=== PATIENT | male | born 1980 | race Caucasian/White ===

== ENCOUNTER 2018-12-08 16:59 | Emergency (ER) | payer OTHER, SELFPAY ==
[2018-12-08 17:06] VITALS: BP 138/84; PULSE 83; RESP 16; TEMP 36.7; O2SAT 100
--- NOTE | 2018-12-08 17:37 | W.ED.GENAD ---
Discharge Plan Disposition Patient Disposition: HOME Condition: Improving Discharge Details Chief Complaint: DrugWithdr Clinical Impression: Opiate dependence ED Provider: Steven Hoffmann Home Meds and New Rx's Prescriptions: Continued clonazepam [Klonopin] 1 mg Tablet 1 mg PO BID RF: 0 venlafaxine [Effexor XR] 150 mg Capsule,Extended Release 24hr 150 mg PO DAILY RF: 0 buprenorphine-naloxone [Suboxone] 12-3 mg Film 1 film BUCCAL Q24H RF: 0 Discharge Instructions Additional Instructions: Please continue your regular medications. Alejandra and from the coach mechanic team will contact you tomorrow as you discussed with her. Home to rest this evening. Return for any acute concerns in the interim. Medical Decision Making 38-year-old male presents from [place] where he is been seen for the past 2 days. He is staying with a friend. He is been living in [place] and recently had a relapse of opiate and cocaine abuse. He was placed on Suboxone 12 mg buprenorphine/3 mg naloxone once daily as well as clonazepam 1 mg twice daily. Today he feels depressed about his social stressors but does not have thoughts of harming himself or others. He feels anxious and if he is jumping out of his skin. He is well-appearing, medical screen examination is unremarkable. His vital signs are normal. Given single Ativan for anxiolysis. passenger coach driver contacted and patient seen in the ED. He has been appropriately initiated on medication. There is a plan for him to be contacted tomorrow by coach mechanic for further and ongoing treatment. He is stable for discharge at this time. HPI General Mode of arrival: ambulatory. Date/Time Provider Initiated Documentation: 12/08/18 17:16. Limitations to Documentation: no limitations. Information obtained by: patient. History of Present Illness 38 year old M presents to the emergency department with the chief complaint of Polysubstance withdrawal, history of opiate abuse, described as moderate, Quality is described as constant, Patient reports no radiation. Patient started experiencing this day(s) and it has been constant. No relieving factors improve symptom(s), No exacerbating factors reported . Patient notes loss of appetite; denies nausea/vomiting. Patient did receive the following treatments prior to arrival, other (Patient has been taking Suboxone 12 mg and Klonopin 1 mg) Related Data Home Medications Medication Instructions Recorded Confirmed buprenorphine-naloxone [Suboxone] 1 film BUCCAL Q24H 12/08/18 12/08/18 clonazepam [Klonopin] 1 mg PO BID 12/08/18 12/08/18 venlafaxine [Effexor XR] 150 mg PO DAILY 12/08/18 12/08/18 Allergies Allergy/AdvReac Type Severity Reaction Status Date / Time No Known Allergies Allergy Unverified 12/08/18 17:10 General Stated Complaint: DrugWithdr IMANI: 3 Review of Systems Review of Systems Narrative: 6 systems reviewed and otherwise negative. Patient endorses depression but no suicidal thoughts or ideation. No thoughts of harming others. Great deal of stress in his personal life. [facility] Social History Smoking/Tobacco Use Status: Current every day Tobacco Type: e-cigarettes Alcohol Intake: former Drug use: Daily Substance use type: crack/cocaine and heroin Do you feel safe at home: Yes Do you feel safe in your relationship?: Yes Exam Narrative Exam Narrative: GEN: awake, alert, oriented 3. Pleasant, well groomed, interactive. HEAD: Normocephalic, atraumatic ENT: Mucous membranes moist, oropharynx unremarkable, External ear exam unremarkable EYES: PERRL, EOMI NECK: Full ROM, no LARISSA, no menigismus CHEST/RESP: Nontender, clear to auscultation bilateral, no wheeze/rhonchi/rales CARDIOVASCULAR: RRR, no murmur, rub cecelia. 2+ Rad pulse bilateral ABDOMEN: Soft, nontender, no mass. +Bowel sounds EXT: Full ROM, no edema, no rash Neuro: Grossly normal neurologic exam, conversant, interactive. Psych: Speech fluent, thoughts congruent, affect anxious Course Vital Signs Vital signs: Vital Signs Temperature 36.7 C 12/08/18 17:06 Pulse 83 12/08/18 17:06 Respiratory Rate 16 12/08/18 17:06 Blood Pressure 138/84 12/08/18 17:06 Pulse Oximetry 100 12/08/18 17:06 Temperature 36.7 C 12/08/18 17:06 Temperature Source Temporal Artery Scan 12/08/18 17:06 Pulse 83 12/08/18 17:06 Respiratory Rate 16 12/08/18 17:06 Respiratory Effort Non-Labored 12/08/18 17:11 Blood Pressure 138/84 12/08/18 17:06 Blood Pressure Position Sitting 12/08/18 17:06 Pulse Oximetry 100 12/08/18 17:06 Pain Level 5 12/08/18 17:06
[2018-12-08] MEDS: LORazepam 1 MG TAB PO (17:50)
[2018-12-08] MEDS: LORazepam 0.5 MG TAB PO (18:51)
[2018-12-08 18:55] VITALS: BP 138/84; PULSE 83; RESP 16; TEMP 36.7; O2SAT 100
== END 2018-12-08 18:55 | disposition home or self-care (01) ==
PROVIDERS: Emergency Provider Emergency Medicine
DX: F11.20 Opioid dependence, uncomplicated (principal); F41.8 Other specified anxiety disorders
CPT/HCPCS: 99283

== ENCOUNTER 2018-12-17 22:04 | Outpatient (REF) | payer OTHER, SELFPAY ==
[2018-12-21 04:15] LABS: 2-OH-Ethyl-Flurazepam Negative ng/mL (Cutoff: 100); 7-NH-Clonazepam 238 ng/mL (Cutoff: 100); 7-NH-Flunitrazepam Negative ng/mL (Cutoff: 50); Alpha OH-Alprazolam Negative ng/mL (Cutoff: 100); Alpha-OH-Triazolam Negative ng/mL (Cutoff: 100); Benzodiazepines Interpretation Positive.; Lorazepam Negative ng/mL (Cutoff: 100); Temazepam Negative ng/mL (Cutoff: 100)
== END 2018-12-17 22:24 ==
LOC: NCHCN 22:04
PROVIDERS: Visit Provider Nurse Practitioner Family
DX: F41.8 Other specified anxiety disorders (principal); Z86.59 Personal history of other mental and behavioral disorders; Z51.81 Encounter for therapeutic drug level monitoring
CPT/HCPCS: 80346